=== PATIENT | female | born 2000 | race Caucasian/White ===

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

== ENCOUNTER 2021-08-21 18:09 | Day surgery (SDC) | payer BC ==
[2021-08-21] MEDS ORDERED: SUCCINYLCHOLINE 200 MG/10 ML VIAL. ONE (18:23)
[2021-08-21] MEDS ORDERED: ONDANSETRON PF 4 MG/2 ML VIAL. ONE (18:24)
[2021-08-21] MEDS ORDERED: DEXAMETHASONE SOD PHOS 4 MG/ML VIAL ONE ×3 (18:24→19:35)
[2021-08-21] MEDS ORDERED: PROPOFOL 10 MG/ML (20ML) VIAL. IV ONE (18:24)
[2021-08-21] MEDS ORDERED: METOCLOPRAMIDE HCL 10 MG/2 ML VIAL. ONE (18:24)
[2021-08-21] MEDS ORDERED: fentaNYL PF VIAL 100 MCG/2 ML VIAL IVP PRN ×2 (18:30)
[2021-08-21] MEDS ORDERED: IV RINGERS,LACTATED 1000ML 1,000 ML IV SCH (18:30)
[2021-08-21] MEDS ORDERED: PROCHLORPERAZINE 10 MG/2 ML VIAL. IVP PRN (18:30)
[2021-08-21] MEDS ORDERED: MORPHINE SULFATE 2 MG/ML INJ. IVP PRN (18:30)
[2021-08-21] MEDS ORDERED: HYDROmorphone 2 MG/ML INJ. IVP PRN (18:30)
[2021-08-21] MEDS ORDERED: OXYMETAZOLINE 0.05% NASAL SPRAY 30ML BOTTLE. NS ONE (18:38)
[2021-08-21] MEDS ORDERED: fentaNYL PF VIAL 100 MCG/2 ML VIAL ONE (19:08)
[2021-08-21] MEDS ORDERED: SEVOFLURANE 31 TO 60 MINUTES. IH ONE (19:34)
[2021-08-21 20:20] VITALS: BP 154/72
--- NOTE | 2021-08-22 10:59 | OP ---
DATE OF SURGERY: 08/21/2021 PREOPERATIVE DIAGNOSIS: Post-tonsillectomy hemorrhage. POSTOPERATIVE DIAGNOSIS: Post-tonsillectomy hemorrhage. PROCEDURE PERFORMED: Control of postoperative tonsillectomy hemorrhage. ESTIMATED BLOOD LOSS: Was approximately 25-30 mL, but the blood that was present when the patient presented, which included evacuation of her stomach and her oropharynx was estimated to be approximately 350-400 mL ANESTHESIA: General anesthetic. INDICATIONS FOR THE PROCEDURE: Bleeding that controlled after a tonsillectomy that was performed this morning in [place], [place] and as a result of close observation, it was felt that control of the bleeding was necessary due to the amount that was occurring. DESCRIPTION OF PROCEDURE: The patient was brought to the operating room and placed on the operating table in supine position. She was given a general anesthetic and was safely intubated. A large quantity of clotted blood was extracted from her oropharynx using a Yankauer suction, after which a nasogastric tube was placed in her esophagus and gentle extraction of blood from her stomach occurred. The oral cavity was then evacuated of blood using an Yankauer suction and the left tonsil fossa was cleared. No active bleeding was there. In the right tonsil fossa was a large clot, which was cleared using the Yankauer suction and with forceps and exposing the bed of the tonsil fossa, identifying bleeding in the central area, which was then gradually controlled with light pressure and then application of suction cautery. When adequate control of bleeding occurred and the oral cavity and the pharynx were clear of blood, the stomach was then evacuated until clear and the procedure was completed. The oral cavity was irrigated and suctioned noting no bleeding and the patient was then recovered from her anesthesia and taken to recovery room in stable condition. FELICITY DR: Addy TID: [id number]
== END 2021-08-21 20:40 | disposition home or self-care (01) ==
LOC: SURG 18:09
PROVIDERS: ATTEND Otolaryngology
DX: J95.830 Postprocedural hemorrhage of a respiratory system organ or structure following a respiratory system procedure (principal)
CPT/HCPCS: 42960; A4930; J0330; J1100; J2405; J2704; J2765; J3010; A4222